=== PATIENT | female | born 1995 | race Caucasian/White ===

== ENCOUNTER 2016-03-25 01:09 | Emergency (ER) | payer SELFPAY ==
[~2016-03-25] VITALS: Ht 170.2 cm; Wt 68.2 kg
[2016-03-25 01:23] VITALS: TEMP 36.6; Ht 170.2 cm; Wt 68.2 kg
--- NOTE | 2016-03-25 01:40 | EMERGENCY ROOM VISIT NOTE ---
History Report prepared by Dave: Krystal Cramer Under the Supervision of: Dr. William Rea D.O. First contact with patient: 01:11 Chief Complaint: ALCOHOL OVERDOSE Stated Complaint: ALCOHOL OVERDOSE History of Present Illness The patient is a 20 year old female who presents to the Emergency Room with complaints of an episode of an alcohol overdose occurring STRATEGY ANALYST. Per police, an [employer] funeral car driver found the patient unconscious outside on [facility]. When police arrived the patient was sitting up and somewhat responsive. She became combative with police. She started fighting when they tried to get her in to the ambulance. The patient told police that she lost everything that was with her including her wallet and phone. She denies abdominal pain or vomiting. She admits to drinking alcohol tonight. HPI is limited secondary to intoxication. Source of History: patient, police History Limited By: intoxication Onset: STRATEGY ANALYST Position: other (global) Quality: other (alcohol overdose) Timing: other (episode) Associated Symptoms: No abdominal pain, No vomiting Review of Systems ROS is limited secondary to intoxication. Past Medical & Surgical Medical Problems: (1) No significant active problems Family History No pertinent history stated. Social History Alcohol Use: occasionally Occupation Status: [employer] student Current/Historical Medications Unable to Obtain Active Prescriptions or Reported Meds Physical Exam Vital Signs Date Time Temp Pulse Resp B/P Pulse Ox O2 Delivery O2 Flow Rate FiO2 03/25/16 03:09 76 18 96 Room Air 03/25/16 02:58 101/68 03/25/16 02:39 73 15 94 Room Air 03/25/16 02:28 95/45 03/25/16 02:09 72 15 98 Room Air 03/25/16 01:58 97/51 03/25/16 01:47 103/47 03/25/16 01:39 79 17 98 Room Air 03/25/16 01:23 124 03/25/16 01:23 36.6 92 16 147/82 95 Room Air 03/25/16 01:18 Room Air 03/25/16 01:18 Room Air 03/25/16 01:15 147/82 Physical Exam GENERAL: Patient is awake and anxious appearing, actively being restrained by security and nursing staff. EYES: The conjunctivae are clear. The pupils are equal round and reactive. Conjunctiva injected bilaterally. EARS, NOSE, MOUTH AND THROAT: The nose is without any evidence of any deformity. Mucous membranes are moist tongue is midline NECK: The neck is nontender and supple. RESPIRATORY: Normal respiratory effort is noted there is no evidence of wheezing rhonchi or rales CARDIOVASCULAR: Regular rate and rhythm noted there no murmurs rubs or gallops normal S1 normal S2 GASTROINTESTINAL: The abdomen is soft. Bowel sounds are present in all quadrants. Abdomen is nontender MUSCULOSKELETAL/EXTREMITIES: There is no evidence of gross deformity full range of motion is noted in the hips and shoulders SKIN: There is no obvious evidence of any rash. There are no petechiae, pallor or cyanosis noted. There were multiple superficial abrasions and bruising noted over both lower extremities, no active bleeding. NEUROLOGIC: Patient is awake alert and oriented to person place but does not follow commands, appears intoxicated. Medical Decision & Procedures Laboratory Results 03/25/16 01:20 Test 03/25/16 01:20 Anion Gap 12.0 mmol/L (3-11) Est Creatinine Clear Calc Drug Dose 101.5 ml/min Estimated GFR () 112.7 Estimated GFR (Non- 97.3 BUN/Creatinine Ratio 17.0 (10-20) Calcium Level 8.7 mg/dl (8.5-10.1) Human Chorionic Gonadotropin, Qual NEG (NEG) Ethyl Alcohol mg/dL 340.0 mg/dl (0-3) Laboratory results per my review. ED Course 0111: The patient was evaluated in room A12B. A complete history and physical examination were performed. Medical Decision Differential diagnosis: Etiologies such as alcohol intoxication, toxicologic, infection, hypoglycemia, electrolyte abnormalities, cardiac sources, intracerebral event, neurologic, as well as others were entertained. Nursing notes reviewed. Additional history is obtained from the local police. The patient is a 20-year-old female who was found clinically intoxicated by the police. Initially she was resisting their help and required restraint prior to arrival. Upon arrival to the emergency department the patient was clinically intoxicated and required physical restraint in the emergency department. The patient was released from restraints when she started to calm down and started sleeping comfortably. She had multiple abrasions to her lower extremities but no other definite signs of trauma. The patient was reevaluated multiple times. Her abdomen is soft. She became much less clinically intoxicated and would arouse to verbal stimuli but was found have a very elevated alcohol level in the emergency department. For this reason she was observed in the emergency department on the president and cmo for a period of time. Impression Primary Impression: Alcoholic intoxication Additional Impression: Aggressive behavior Scribe Attestation The scribe's documentation has been prepared under my direction and personally reviewed by me in its entirety. I confirm that the note above accurately reflects all work, treatment, procedures, and medical decision making performed by me. Departure Information Dispostion Home / Self-Care Prescriptions Unable to Obtain Active Prescriptions or Reported Meds Referrals [facility] Forms HOME CARE DOCUMENTATION FORM, IMPORTANT VISIT INFORMATION, School Instructions, Work Instructions Patient Instructions Alcohol Intoxication - [facility], [facility]: [employer] Students and Alcohol Related Visits , My [facility] Additional Instructions Avoid any further alcohol use. Do not operate any heavy machinery including driving a vehicle for next 24 hours. Continue drinking plenty clear liquids including Gatorade and Pedialyte. Continue using Motrin and Tylenol struck did for pain. Follow-up with your family doctor soon as possible. Problem Qualifiers Primary Impression: Alcoholic intoxication Complication of substance-induced condition: uncomplicated Qualified Codes: F10.120 - Alcohol abuse with intoxication, uncomplicated
[2016-03-25 01:51] LABS: CALCIUM 8.7 mg/dl (8.5-10.1); CREATININE 0.86 mg/dl (0.60-1.20); POTASSIUM 3.4 mmol/L (3.5-5.1)
[2016-03-25 02:32] LABS: PREG INTERNAL NEGATIVE QC NEG CLEAR BACKGROUND; PREG INTERNAL POSITIVE QC POS CONTROL LINE
[2016-03-25 08:32] VITALS: BP 99/76; PULSE 68; O2SAT 99
--- NOTE | 2016-03-25 08:37 | EMERGENCY ROOM VISIT NOTE ---
ED Visit Note First contact with patient: 08:35 I evaluated this patient who was wide-awake and requesting discharge. I spent some time talking to her about the hazards of excessive alcohol use. I explained to her that her alcohol level was very high and that she would not be able to drive a vehicle for the next 24 hours. She take plenty of clear liquids and rest. She'll use Tylenol for headache.
== END 2016-03-25 09:10 | disposition home or self-care (01) ==
LOC: EDBD 01:09 → C.EDA 01:10
DX: F10.129 Alcohol abuse with intoxication, unspecified (principal); F91.9 Conduct disorder, unspecified

== ENCOUNTER 2016-10-28 04:47 | Emergency (ER) | payer OTHER ==
[~2016-10-28] VITALS: Ht 162.6 cm; Wt 66.0 kg
[2016-10-28 04:55] VITALS: TEMP 36.6; O2SAT 97; Ht 162.6 cm; Wt 66.0 kg
[2016-10-28 05:24] LABS: BUN/CREATININE RATIO 7.6 (10-20); CALCIUM 8.5 mg/dl (8.5-10.1); CREATININE 0.81 mg/dl (0.60-1.20); POTASSIUM 3.7 mmol/L (3.5-5.1)
[2016-10-28 10:07] VITALS: BP 114/76; PULSE 106; O2SAT 99
--- NOTE | 2016-10-28 11:57 | EMERGENCY ROOM VISIT NOTE ---
ED Visit Note First contact with patient: 10:16 0700 - I received sign-out from Marlena High PA-C. Patient evaluated for alcohol intoxication, medically cleared and awaiting sobriety to be discharged home with friends at noon. 1015 - The nurse notified me that the patient is fully alert and ambulatory, she is asking to be evaluated for some complaints of exertional shortness of breath. I examined the patient. Upon discussion with the patient, she states she has been having intermittent exertional shortness of breath and fatigue, most notably when walking to class or going up flights of stairs, for over a year. She has not had this evaluated by her primary provider. She does state that she is able to workout at the gym without these symptoms occurring. I discussed options with her and offered to check a CBC to rule out anemia and an EKG to rule out cardiac dysrhythmia. Patient states she does not want to do any further workup at this time and would like to go home. She states she will follow-up with her family doctor. Patient is being discharged home with friends. Brief Physical Exam: CONSTITUTIONAL: No acute distress. Well appearing and well nourished. Alert and oriented X 4 with normal affect. HEENT: Normocephalic, atraumatic. Pupils equal, round and reactive to light, EOMI.Pharynx normal. RESPIRATORY: Clear to auscultation bilaterally with no wheezing, crackles, rhonchi or stridor. Equal expansion bilaterally. CARDIOVASCULAR: Regular rate and rhythm with no murmurs, rubs or gallops. Normal peripheral perfusion. No edema. NEUROLOGIC: Cranial nerves II-XII grossly intact. No focal neurologic deficits noted.
--- NOTE | 2016-10-29 07:01 | EMERGENCY ROOM VISIT NOTE ---
History First contact with patient: 04:50 Chief Complaint: ALCOHOL OVERDOSE Stated Complaint: ALCOHOL Nursing Triage Summary: Patient arrived via EMS. EMS reports patient found sleeping in [facility]. Patient unable to call sober friend and unable to give address. EMS reports patient drinking unknown type or ammount of alcohol. Patient has dried vomit on shirt. History of Present Illness The patient is a 21 year old female who presents to the Emergency Room with complaints of alcohol overdose. Patient was found asleep at [facility]. Patient states she had a lot of alcohol. No drugs. Patient denies chest pain, dyspnea, abdominal pain or any other medical complaints. Review of Systems See HPI for pertinent positives & negatives. A total of 10 systems reviewed and were otherwise negative. Past Medical/Surgical History Medical Problems: (1) No significant active problems Social History Smoking Status: Never Smoker Alcohol Use: occasionally Drug Use: none Occupation Status: [employer] student Current/Historical Medications Unable to Obtain Active Prescriptions or Reported Meds Physical Exam Vital Signs Date Time Temp Pulse Resp B/P (MAP) Pulse Ox O2 Delivery O2 Flow Rate FiO2 10/28/16 10:07 106 18 114/76 99 Room Air 10/28/16 09:14 70 16 98/61 97 Room Air 10/28/16 07:31 68 18 95/63 96 Room Air 10/28/16 07:03 55 10/28/16 06:30 95/65 10/28/16 06:17 56 16 96 10/28/16 06:00 93/53 10/28/16 05:32 57 16 79/58 97 10/28/16 05:31 80/54 10/28/16 05:01 112/58 10/28/16 05:00 76 10/28/16 04:55 36.6 75 16 137/94 97 Room Air 10/28/16 04:55 97 Room Air 10/28/16 04:55 97 Room Air 10/28/16 04:53 137/94 Physical Exam PHYSICAL EXAM: VITALS: Vitals are noted on the nurse's note and reviewed by myself. Vital signs stable. GENERAL: female EtOH odor, in no acute distress, nondiaphoretic, well- developed well-nourished. The patient is visibly intoxicated. SKIN: The skin was without obvious lacerations, abrasions, or rashes. There is no tenting of the skin. Capillary reflex less than 2 seconds. HEENT: Normocephalic, atraumatic. PERRLA. EOMI. Conjunctiva with mild injection without icterus. Tympanic membranes without erythema or effusion bilaterally no hemotympanum. External auditory canals are clear. Nares patent bilaterally. No epistaxis. Oropharynx without erythema or exudate. Uvula midline. Oral mucosal moist. No lymphadenopathy. Neck is supple without cervical spine tenderness. HEART: Regular rate and rhythm without murmurs gallops or rubs. Peripheral pulses 2+. LUNGS: Clear to auscultation bilaterally without wheezes, rales or rhonchi. ABDOMEN: Positive bowel sounds x 4. Normal tympanic percussion. Soft, nontender, without masses or organomegaly. MUSCULOSKELETAL: Gross motor function of the upper and lower extremities intact. The patient has a staggering gait. NEUROLOGIC: The patient is visibly intoxicated. Once they were more sober they were alert and oriented to person place and time. Medical Decision & Procedures Laboratory Results 10/28/16 04:54 Test 10/28/16 04:54 Anion Gap 6.0 mmol/L (3-11) Est Creatinine Clear Calc Drug Dose 102.7 ml/min Estimated GFR () 120.3 Estimated GFR (Non- 103.8 BUN/Creatinine Ratio 7.6 (10-20) Calcium Level 8.5 mg/dl (8.5-10.1) Ethyl Alcohol mg/dL 276.0 mg/dl (0-3) ED Course Prior records/ancillary studies reviewed. Triage Nursing notes reviewed. Additional history obtained from EMS. The patient's history was concerning for altered mental status and a possible alcohol overdose. Differential diagnosis: Etiologies such as alcohol intoxication, toxicologic, infection, hypoglycemia, electrolyte abnormalities, cardiac sources, intracerebral event, neurologic, as well as others were entertained. Physical examination: As above. The patient is clinically intoxicated. no trauma noted. ER treatment provided: Monitoring Aspiration precautions The patient was frequently reassessed. Diagnostic interpretation by me: Cardiac monitoring did not reveal any evidence of dysrhythmia. The labs revealed no worrisome electrolyte abnormality. The patient's blood alcohol level was 276 mg/dL. The patient's history was reviewed once they were more coherent and their intoxication cleared. The patient states they have been in good health recently and had no medical complaints. The patient admitted to consuming alcohol. No additional concerning findings were noted. The patient complained of no symptoms to suggest assault. This appears to be consistent with an isolated overdose of alcohol. By the evaluation outlined above emergent etiologies such as trauma, infection, hypoglycemia, electrolyte abnormalities, cardiac sources, intracerebral event, neurologic,as well as others were deemed relatively unlikely. The patient was informed about the findings as listed above. The patient was counseled on the dangers of excessive alcohol use. I gave my usual and customary discussion regarding this issue. All questions were answered and the patient was pleased with the treatment. Return instructions were outlined and the patient was discharged in stable condition once their mental status improved and a safe destination was confirmed. Outpatient prescription management: None Referral: The patient was referred back to their primary care physician for follow-up in 2 to 3 days for a recheck of their current condition. Medical Decision As above Medication Reconcilliation Current Medication List: was personally reviewed by me Blood Pressure Screening Patient's blood pressure: Normal blood pressure Impression Primary Impression: Alcohol overdose Departure Information Dispostion Home / Self-Care Condition GOOD Prescriptions Unable to Obtain Active Prescriptions or Reported Meds Referrals No Doctor, Assigned (PCP) Patient Instructions My [facility] Additional Instructions Keep well-hydrated. Tylenol every 6 hours as needed for pain (Maximum 3000 mg Tylenol in 24 hr period). Follow up with family doctor and/or health services as needed. No driving for the next 24 hours. Recommend no alcohol for the next 48 hours and avoid binge drinking in the future. Return to ER sooner for chest pain, abdominal pain, worsening signs or symptoms or as needed. Problem Qualifiers Primary Impression: Alcohol overdose Encounter type: initial encounter Injury intent: accidental or unintentional Qualified Codes: T51.91XA - Toxic effect of unspecified alcohol , accidental (unintentional), initial encounter
== END 2016-10-28 10:37 | disposition home or self-care (01) ==
LOC: EDBD 04:47 → C.EDB 04:49
DX: T51.91XA Toxic effect of unspecified alcohol, accidental (unintentional), initial encounter (principal); Y90.8 Blood alcohol level of 240 mg/100 ml or more